=== PATIENT | male | born 2000 | race Caucasian/White ===

== ENCOUNTER → 2020-10-22 13:01 | Outpatient (BNVA) | payer MEDICAID, SELFPAY | PROVIDERS: Visit Provider Nurse Practitioner Family | DX: Z20.822 Contact with and (suspected) exposure to COVID-19 (principal) | CPT/HCPCS: 87635 ==

== ENCOUNTER 2021-04-01 11:35 | Inpatient (IN) | payer SELFPAY ==
--- NOTE | 2021-04-01 12:26 | W.ED.PSYCHS ---
Documented by User: SELIN Parada 04/01/21 12:28 HPI - Psych General: Chief Complaint: Psychiatric Symptoms Stated Complaint: 96 HR HOLD Time Seen by Provider: 04/01/21 12:27 Source: patient and police Mode of arrival: other (police) Limitations: no limitations History of Present Illness: HPI Narrative: Patient is a 20-year-old male who presents to ED today in police custody on a 96-hour hold after he made suicidal statements via text yesterday evening. According to hold paperwork and printed text messages the patient made statements about needing a gun to end it all or if he did not have access to a gun he would wrecked his car. Patient tells me he is not currently suicidal. Denies drug or alcohol use yesterday evening. Course Vital Signs: Vital signs: Vital Signs Temperature 97.9 F 04/01/21 13:10 Pulse Rate 81 04/01/21 13:10 Respiratory Rate 14 04/01/21 13:10 Blood Pressure 150/98 04/01/21 13:10 Pulse Oximetry 97 04/01/21 13:10 MDM - Psych MDM Narrative: Medical decision making narrative: Patient is yet to be triaged at the moment. I spoke to patient and police liaison while they were in the waiting room. He currently is handcuffed in police custody. Once he is triaged we will get patient to an appropriate room with a sitter for psychiatric work-up and admission to N[facility]. Lab Data: Labs: Lab Results 04/01/21 13:14 WBC 8.7 10^3/uL 10^3/ uL (4.0-10.0) RBC 6.01 10^6/uL H 10 ^6/uL (4.1-5.3) Hgb 16.9 g/dL H g/dL (11.7-16.6) Hct 52.5 % H % (42.0-52.0) MCV 87.4 fl fl (80-94) MCH 28.1 pg pg (28.0-34.0) MCHC 32.2 g/dL g/dL (30.0-36.0) RDW 12.1 % % (12.1-15.1) Plt Count 205 10^3/cmm 10^3 /cmm (130-400) MPV 11.5 fL H fL (7.4-10.4) Neut % (Auto) 66.3 % % Lymph % (Auto) 22.3 % % Beauregard % (Auto) 8.3 % % Eos % (Auto) 2.2 % % Baso % (Auto) 0.6 % % Neut # (Auto) 5.75 10^3/uL 10^3 /uL (1.8-7.7) Lymph # (Auto) 1.9 10^3/uL 10^3/ uL (0.8-4.8) Beauregard # (Auto) 0.7 10^3/uL 10^3/ uL (0.2-0.9) Eos # (Auto) 0.2 10^3/uL 10^3/ uL (0.0-0.8) Baso # (Auto) 0.1 10^3/uL 10^3/ uL (0.0-0.1) Nucleated RBC % (a uto) 0 % % Nucleated RBCs # 0.0 /100WBC /100W BC Discharge Plan Discharge Prescriptions: No Action No Known Home Medications RF: 0 Coding Level of Care Code ED Timber Girdler for Chg Fwd Documented by User: Beverley Moreno MD 04/01/21 13:37 HPI - Psych General: Chief Complaint: Psychiatric Symptoms Stated Complaint: 96 HR HOLD Time Seen by Provider: 04/01/21 12:27 Course Vital Signs: Vital signs: Vital Signs Temperature 97.9 F 04/01/21 13:10 Pulse Rate 81 04/01/21 13:10 Respiratory Rate 14 04/01/21 13:10 Blood Pressure 150/98 04/01/21 13:10 Pulse Oximetry 97 04/01/21 13:10 MDM - Psych Lab Data: Labs: Lab Results 04/01/21 13:14 WBC 8.7 10^3/uL 10^3/ uL (4.0-10.0) RBC 6.01 10^6/uL H 10 ^6/uL (4.1-5.3) Hgb 16.9 g/dL H g/dL (11.7-16.6) Hct 52.5 % H % (42.0-52.0) MCV 87.4 fl fl (80-94) MCH 28.1 pg pg (28.0-34.0) MCHC 32.2 g/dL g/dL (30.0-36.0) RDW 12.1 % % (12.1-15.1) Plt Count 205 10^3/cmm 10^3 /cmm (130-400) MPV 11.5 fL H fL (7.4-10.4) Neut % (Auto) 66.3 % % Lymph % (Auto) 22.3 % % Beauregard % (Auto) 8.3 % % Eos % (Auto) 2.2 % % Baso % (Auto) 0.6 % % Neut # (Auto) 5.75 10^3/uL 10^3 /uL (1.8-7.7) Lymph # (Auto) 1.9 10^3/uL 10^3/ uL (0.8-4.8) Beauregard # (Auto) 0.7 10^3/uL 10^3/ uL (0.2-0.9) Eos # (Auto) 0.2 10^3/uL 10^3/ uL (0.0-0.8) Baso # (Auto) 0.1 10^3/uL 10^3/ uL (0.0-0.1) Nucleated RBC % (a uto) 0 % % Nucleated RBCs # 0.0 /100WBC /100W BC Discharge Plan Discharge Prescriptions: No Action No Known Home Medications RF: 0 Coding Level of Care Code ED Timber Girdler for Papitog Abril
[2021-04-01 13:10] VITALS: BP 150/98; PULSE 81; RESP 14; TEMP 36.6; O2SAT 97; BMI 26.6
[2021-04-01 13:20] LABS: Basophils # 0.1 10^3/uL (0.0-0.1); Basophils % 0.6 %; Eosinophils # 0.2 10^3/uL (0.0-0.8); Eosinophils % 2.2 %; Hematocrit 52.5 % (42.0-52.0); Hemoglobin 16.9 g/dL (11.7-16.6); Lymphocytes # 1.9 10^3/uL (0.8-4.8); Lymphocytes % 22.3 %; Mean Corpuscular HGB Conc 32.2 g/dL (30.0-36.0); Mean Corpuscular Hemoglobin 28.1 pg (28.0-34.0); Mean Corpuscular Volume 87.4 fl (80-94); Mean Platelet Volume 11.5 fL (7.4-10.4); Monocytes # 0.7 10^3/uL (0.2-0.9); Monocytes % 8.3 %; Neutrophils # 5.75 10^3/uL (1.8-7.7); Neutrophils % 66.3 %; Nucleated Red Blood Cells % 0 %; Platelet Count 205 10^3/cmm (130-400); Red Blood Count 6.01 10^6/uL (4.1-5.3); Red Cell Distribution Width 12.1 % (12.1-15.1); White Blood Count 8.7 10^3/uL (4.0-10.0)
[2021-04-01 13:38] LABS: Anion Gap 16.4 (5-19); Blood Urea Nitrogen 14 mg/dL (6-20); Carbon Dioxide 25 mmol/L (22-29); Chloride 100 mmol/L (98-107); Glucose 108 mg/dL (65-115); Osmolality Calculated 285 mOsm/kg (285-295); Potassium 4.4 mmol/L (3.5-5.1); Sodium 137 mmol/L (136-145)
[2021-04-01 13:40] LABS: Acetaminophen < 5.0 ug/mL (10-30); Alcohol Level < 10 mg/dL (0-10); Salicylate < 0.3 mg/dL (3-10)
[2021-04-01 16:03] VITALS: BP 150/98; PULSE 81; RESP 14; TEMP 36.6; O2SAT 97
[2021-04-01 17:19] LABS: Amphetamines Screen Urine Negative (Negative); Barbiturates Screen Urine Negative (Negative); Benzodiazepines Screen Urine Negative (Negative); Cocaine Screen Urine Negative (Negative); Opiate Screen Urine Negative (Negative); PCP Screen Urine Negative (Negative); THC Screen Urine Negative (Negative)
--- NOTE | 2021-04-01 18:07 | PC.NURSE ---
Admission Patient is a 20-year-old male who presents to ED today in police custody on a 96-hour hold after he made suicidal statements via text yesterday evening. According to hold paperwork and printed text messages the patient made statements about needing a gun to end it all or if he did not have access to a gun he would wrecked his car. Patient tells me he is not currently suicidal. Denies drug or alcohol use yesterday evening. Upon arrival to unit, patient calm and cooperative, A&OX4. Patient denies current SI/HI or AVH. Agrees to SI yesterday, when asked about cause only states stress, does not elaborate. Denies prior dx or treatment for psych or medical. UDS negative.
[2021-04-01 23:44] VITALS: BP 129/79; PULSE 86; RESP 15; TEMP 36.6; O2SAT 95
[2021-04-02 05:54] VITALS: BP 128/76; PULSE 84; RESP 16; TEMP 37.1; O2SAT 99
--- NOTE | 2021-04-02 06:51 | W.PM.NPUH&PS ---
Providers/Chief Complaint Admitting Physician: Eliel Moyer MD Chief Complaint: 96 HR HOLD HPI NPU History of Present Illness Danny Tirado is a 20 year old male who presented yesterday to the emergency department with the following report: HPI - Psych General: Chief Complaint: Psychiatric Symptoms Stated Complaint: 96 HR HOLD Time Seen by Provider: 04/01/21 12:27 Source: patient and police Mode of arrival: other (police) Limitations: no limitations History of Present Illness: HPI Narrative: Patient is a 20-year-old male who presents to ED today in police custody on a 96-hour hold after he made suicidal statements via text yesterday evening. According to hold paperwork and printed text messages the patient made statements about needing a gun to end it all or if he did not have access to a gun he would wrecked his car. Patient tells me he is not currently suicidal. Denies drug or alcohol use yesterday evening. There is an affidavit on the chart. He made text message threats to kill himself yesterday. He was also found walking on the road in shorts and a T-shirt and was agitated and upset with the police pilot who tried to help him. He was admitted to the neuropsychiatry unit for definitive treatment of his depression and suicidal ideation. He says that he was stressed out on Thursday. He was drinking with his cousin and his girlfriend was there. They left for 2 hours and she got angry about that. He has an ex-girlfriend that he had been trying to get with. They had 2 miscarriages. Now she is for 15 weeks and says that it is his child. He is not sure. If it is his child then will be happy about it. He will probably get back with her. His current girlfriend who he had the argument with has had previously that if he has anything to do with that child she will leave him. He had suicidal ideation on Thursday. He says that happens occasionally when he gets stressed out. The last time was earlier this year. He says this is the second time this year that it has happened. He would not estimate the number of times it has happened previously. Family members were concerned and look for him and could not find him. They called the police who also look for him. He was finally found walking down the road not going anywhere in particular dressed in shorts and a short sleeve shirt. He says that he always stresses that way. He says that he always generates his own heat. Does skinny dipping and ice water in the wintertime. He initially said that he was not depressed or anxious. After some time he asked what depression was. I explained his symptoms and he said that he does meet those criteria. He said that he has had depression for a long time. He can only sleep for about 3 hours a day. Once he went 48 hours without sleeping but then slept for 24 hours. In general he sleeps 3 hours a day and does not catch up on weekends or days off. He always has low motivation and low energy and low self-esteem. He feels more guilty that he should. He says that he has tried marijuana and alcohol but they do not help. He says that he is generally on social person. There are only a very few people that he will talk to. His parents are not on that list. He says they were relatively good to him when he was growing up but not perfect. He would not talk more about that. 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 He is doing the generic work that does not require much experience or skill at this point. He is gradually learning how to work on the trucks himself. That he drinks occasionally but no one has ever complained that he drinks too much. He does not think that it caused a problem. It was a factor in his argument with his girlfriend on Thursday night. He was offered medication but declined. He was offered something to help him sleep but also declined. He says that he has used melatonin in the past but it does not do much. Meds NPU Home Medications Medication Instructions Recorded Confirmed Last Taken Type No Known Home Medications 10/22/20 04/01/21 Unknown History Allergies Allergy/AdvReac Type Severity Reaction Status Date / Time No Known Allergies Allergy Verified 04/01/21 14:15 Mental Status Exam MSE Comments: This is a 20-year-old mildly overweight male of about the stated age in no acute distress. He is dressed in hospital scrubs and is well groomed with long hair and a goatee. psychomotor activity normal. Speech is at a regular rate and rhythm, normal volume, good articulation, not pressured. Alert, oriented X3 Attention and concentration appears to be normal. Memory is intact Mood is depressed. Affect is dysphoric. Thought process is logical and goal-directed. Thought content: Denies auditory and visual hallucinations. No delusions or paranoia are noted. No current suicidal ideation, and no homicidal ideation. Fund of knowledge is appears to be normal. Insight and judgment appear to be appears to be good. Impulse control is appears to be fair. Vitals/I&O/Wt Last Vital Signs Temp 98.7 F 04/02/21 05:54 Pulse 84 04/02/21 05:54 Resp 16 04/02/21 05:54 BP 128/76 04/02/21 05:54 Pulse Ox 99 04/02/21 05:54 Weight last 48 hrs Weight 81.647 kg Data NPU : 04/01/21 13:14 04/01/21 13:14 A&P Assessment and plan (1) Depression: Status: Acute Qualifiers: Depression Type: major depressive disorder Major depression recurrence: recurrent Active/Remission status: currently active Major depression episode severity: severe Psychotic features: without psychotic features Qualified Code(s): F33.2 - Major depressive disorder, recurrent severe without psychotic features (2) Suicidal ideation: Status: Acute Additional A&P Information This is a 20-year-old male who reports long-term depression and had a fight with his girlfriend resulting in suicidal ideation and threats. Plan: 1. offered medication declined. 2. Continue every 15 minute checks for safety. 3. Encourage individual, group and milieu therapies. 4. Encourage sober living treatment after discharge at the highest level of care to which he is willing to commit. 5. We will monitor for safety for himself in the community prior to discharge. Involuntary Hold Information 96 Hour Hold: 96 Hour Involuntary Admission: Yes 96 Hour Hold Ending Date: 04/08/21 96 Hour Hold Ending Time: 11:35 Attestations NPU Medical Necessity Statement*: Inpatient hospitalization is medically necessary and the clinically appropriate intervention at this time. We will initiate medications and make changes as indicated. He will be in the hospital for over 2 midnights. Likely length of stay 3-4 days Coding Level of Care Code Acute Education Courses Sales Representative for Ariana Samuels Diagnoses Depression F33.2 Depression Type: major depressive disorder Major depression recurrence: recurrent Active/Remission status: currently active Major depression episode severity: severe Psychotic features: without psychotic features Suicidal ideation R44.047
--- NOTE | 2021-04-02 11:05 | NPU.GN ---
[facility] Group Topic:Tello Word Search General Mood of Group: Romeo did not attend group today he slept today.
[2021-04-02 14:00] VITALS: BP 135/72; PULSE 70; RESP 17; TEMP 37; O2SAT 99
[2021-04-02 20:47] VITALS: BP 126/79; PULSE 88; RESP 18; TEMP 36.8; O2SAT 97
--- NOTE | 2021-04-02 22:58 | PC.NURSE ---
Patient has slept through equipment installation professional assessment for the last 3 shifts. He does not interact with staff.
[2021-04-03 06:00] VITALS: BP 106/66; PULSE 82; RESP 16; TEMP 36.6; O2SAT 99
--- NOTE | 2021-04-03 10:31 | NPU.GN ---
[facility] Group Topic:Group Topic:Crisis Plan, Triggers, Coping Mechanisms. General Mood of Group:Danny did not attend group this morning. He was awake but just sitting on his bed.
--- NOTE | 2021-04-03 11:42 | W.PM.NPUPNS ---
Subjective NPU Subjective: Interval history: He says that he has been doing well. He said that he just needed to walk around the road and he would be fine. Unfortunately he did not talk to the police and was argumentative with them. He said he does not like to talk to the police. He thinks that he is mostly down because his ex-girlfriend was with twins but lost them due to a miscarriage and they would have been 1.5 years old at this time. His father came to visit and they had a good talk. He still says his father is not someone to talk to but he talked a lot about conversations that he has had. He feels like his father is a person that he can talk to and learn about how to deal with his issues. He said that he is exactly like his father. He was really wanting to go home today but reluctantly agreed to wait 1 more day to make sure that he is okay and does not have any more suicidal thoughts. Mental Status Exam MSE Comments: This is a 20-year-old mildly overweight male of about the stated age in no acute distress. He is dressed in hospital scrubs and is well groomed with long hair and a goatee. psychomotor activity normal. Speech is at a regular rate and rhythm, normal volume, good articulation, not pressured. Alert, oriented X3 Attention and concentration appears to be normal. Memory is intact Mood is mildly depressed. Affect is mildly dysphoric. Thought process is logical and goal-directed. Thought content: Denies auditory and visual hallucinations. No delusions or paranoia are noted. No current suicidal ideation, and no homicidal ideation. Fund of knowledge is appears to be normal. Insight and judgment appear to be appears to be good. Impulse control is appears to be fair. Cognition: Patient Appearance: Appropriate Level of Consciousness: Awake and Alert Patient Cognition Impaired: No Ability to Follow Directions: Good Patient Orientation (long list): Person, Place and Time Comprehension Ability: Understands Concepts Hallucination Type: None Delusion Description: Not Present Thought Process: Appropriate Affect: Affect Description: Appropriate Behavior: Patient Behavior: Appropriate Speech Pattern: Appropriate Vitals/I&O/Wt Last Vital Signs Temp 97.9 F 04/03/21 06:00 Pulse 82 04/03/21 06:00 Resp 16 04/03/21 06:00 BP 106/66 04/03/21 06:00 Pulse Ox 99 04/03/21 06:00 Weight last 48 hrs Weight 81.647 kg Data N[facility] : 04/01/21 13:14 04/01/21 13:14 A&P Assessment and plan (1) Depression: Status: Acute Qualifiers: Depression Type: major depressive disorder Major depression recurrence: recurrent Active/Remission status: currently active Major depression episode severity: severe Psychotic features: without psychotic features Qualified Code(s): F33.2 - Major depressive disorder, recurrent severe without psychotic features (2) Suicidal ideation: Status: Acute Additional A&P Information This is a 20-year-old male who reports long-term depression and had a fight with his girlfriend resulting in suicidal ideation and threats. Plan: 1. offered medication but he declined. 2. Continue every 15 minute checks for safety. 3. Encourage individual, group and milieu therapies. 4. Encourage sober living treatment after discharge at the highest level of care to which he is willing to commit. 5. We will monitor for safety for himself in the community prior to discharge. Involuntary Hold Information 96 Hour Hold: 96 Hour Involuntary Admission: Yes 96 Hour Hold Ending Date: 04/08/21 96 Hour Hold Ending Time: 11:35 Attestations NPU Medical Necessity Statement*: Inpatient hospitalization is medically necessary and the clinically appropriate intervention at this time. We will initiate medications and make changes as indicated. Coding Level of Care Code Acute Strip Tank Tender for Ariana Samuels Diagnoses Depression F33.2 Depression Type: major depressive disorder Major depression recurrence: recurrent Active/Remission status: currently active Major depression episode severity: severe Psychotic features: without psychotic features Suicidal ideation R45.851
[2021-04-03 14:00] VITALS: BP 128/86; PULSE 73; RESP 18; TEMP 36.7; O2SAT 99
[2021-04-03 22:00] VITALS: BP 128/86; PULSE 73; RESP 18; TEMP 36.7; O2SAT 99
[2021-04-04 06:00] VITALS: BP 105/70; PULSE 90; RESP 17; TEMP 36.8; O2SAT 99
--- NOTE | 2021-04-04 07:50 | P.NPUDS_ITS ---
Diagnoses at Discharge Discharge Diagnosis (1) Depression: Status: Acute Qualifiers: Depression Type: major depressive disorder Major depression recurrence: recurrent Active/Remission status: currently active Major depression episode severity: severe Psychotic features: without psychotic features Qualified Code(s): F33.2 - Major depressive disorder, recurrent severe without psychotic features (2) Suicidal ideation: Status: Acute Reason for Visit Reason for Visit: 96 HR HOLD Brief History: History of Present Illness Danny Tirado is a 20 year old male who presented yesterday to the emergency department with the following report: HPI - Psych General: Chief Complaint: Psychiatric Symptoms Stated Complaint: 96 HR HOLD Time Seen by Provider: 04/01/21 12:27 Source: patient and police Mode of arrival: other (police) Limitations: no limitations History of Present Illness: HPI Narrative: Patient is a 20-year-old male who presents to ED today in police custody on a 96-hour hold after he made suicidal statements via text yesterday evening. According to hold paperwork and printed text messages the patient made statements about needing a gun to end it all or if he did not have access to a gun he would wrecked his car. Patient tells me he is not currently suicidal. Denies drug or alcohol use yesterday evening. There is an affidavit on the chart. He made text message threats to kill himself yesterday. He was also found walking on the road in shorts and a T- shirt and was agitated and upset with the police crime scene technician who tried to help him. He was admitted to the neuropsychiatry unit for definitive treatment of his depression and suicidal ideation. He says that he was stressed out on Thursday. He was drinking with his cousin and his girlfriend was there. They left for 2 hours and she got angry about that. He has an ex-girlfriend that he had been trying to get with. They had 2 miscarriages. Now she is for 15 weeks and says that it is his child. He is not sure. If it is his child then will be happy about it. He will probably get back with her. His current girlfriend who he had the argument with has had previously that if he has anything to do with that child she will leave him. He had suicidal ideation on Thursday. He says that happens occasionally when he gets stressed out. The last time was earlier this year. He says this is the second time this year that it has happened. He would not estimate the number of times it has happened previously. Family members were concerned and look for him and could not find him. They called the police who also look for him. He was finally found walking down the road not going anywhere in particular dressed in shorts and a short sleeve shirt. He says that he always stresses that way. He says that he always generates his own heat. Does skinny dipping and ice water in the wintertime. He initially said that he was not depressed or anxious. After some time he asked what depression was. I explained his symptoms and he said that he does meet those criteria. He said that he has had depression for a long time. He can only sleep for about 3 hours a day. Once he went 48 hours without sleeping but then slept for 24 hours. In general he sleeps 3 hours a day and does not catch up on weekends or days off. He always has low motivation and low energy and low self-esteem. He feels more guilty that he should. He says that he has tried marijuana and alcohol but they do not help. He says that he is generally on social person. There are only a very few people that he will talk to. His parents are not on that list. He says they were relatively good to him when he was growing up but not perfect. He would not talk more about that. 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 He is doing the generic work that does not require much experience or skill at this point. He is gradually learning how to work on the trucks himself. That he drinks occasionally but no one has ever complained that he drinks too much. He does not think that it caused a problem. It was a factor in his argument with his girlfriend on Thursday night. He was offered medication but declined. He was offered something to help him sleep but also declined. He says that he has used melatonin in the past but it does not do much. Hospital Course Hospital Course He slowly acclimated to the individual, group and milieu therapies provided. He does not feel that he is depressed and did not want to take medication. He showed steady improvement during his stay. He was able to contract for safety outside hospital prior to discharge. During the hospitalization, patient had routine laboratory studies which were within normal limits except for few outliers. Additionally there was a general medical evaluation which was also within normal limits and revealed no new acute processes. Discharge Summary: At the time of discharge, lethality was denied. Mood and anxiety were well managed. Patient endorsed a plan to follow-up with the aftercare recommendations of the treatment team. Patient was evaluated and deemed to be absent credible lethality, and had achieved the maximum benefit from an inpat ient hospitalization, so was discharged. Involuntary Hold Information 96 Hour Hold: 96 Hour Involuntary Admission: Yes 96 Hour Hold Ending Date: 04/08/21 96 Hour Hold Ending Time: 11:35 Mental Status Exam MSE Comments: This is a 20-year-old mildly overweight male of about the stated age in no acute distress. He is dressed in hospital scrubs and is well groomed with long hair and a goatee. psychomotor activity normal. Speech is at a regular rate and rhythm, normal volume, good articulation, not pressured. Alert, oriented X3 Attention and concentration appears to be normal. Memory is intact Mood is good. Affect is mildly euthymic. Thought process is logical and goal-directed. Thought content: Denies auditory and visual hallucinations. No delusions or paranoia are noted. No current suicidal ideation, and no homicidal ideation. Fund of knowledge is appears to be normal. Insight and judgment appear to be appears to be good. Impulse control is appears to be fair. Cognition: Patient Appearance: Appropriate Level of Consciousness: Awake and Alert Patient Cognition Impaired: No Ability to Follow Directions: Good Patient Orientation (long list): Person, Place and Time Comprehension Ability: Understands Concepts Hallucination Type: None Delusion Description: Not Present Thought Process: Appropriate Affect: Affect Description: Appropriate Behavior: Patient Behavior: Appropriate and Withdrawn Speech Pattern: Appropriate Discharge Data Vitals: Last Vital Signs Temp 98.2 F 04/04/21 06:00 Pulse 90 04/04/21 06:00 Resp 17 04/04/21 06:00 BP 105/70 04/04/21 06:00 Pulse Ox 99 04/04/21 06:00 Discharge Plan Discharge Patient Disposition: Home Condition: Stable Prescriptions: No Action No Known Home Medications RF: 0 Discharge Orders: Discharge Order (Routine); Ordered 04/04/21 Ordered By: Eliel Moyer Discharge Diet: Regular Discharge Activity: Resume usual activity Patient Instructions: Opioid Safety Discharge Attestations NPU Time Spent in Discharge Care*: less than 30 min Specific Discharge Activities: Specific discharge activities: educating patient, discussing with caseworker protective services/social workers/dc planners, documenting/other paperwork and evaluating patient/reviewing data Coding Level of Care Code Acute g FW DC note Diagnoses Depression F33.2 Depression Type: major depressive disorder Major depression recurrence: recurrent Active/Remission status: currently active Major depression episode severity: severe Psychotic features: without psychotic features Suicidal ideation R45.511
[2021-04-04 10:02] VITALS: BP 105/70; PULSE 90; RESP 17; TEMP 36.8; O2SAT 99
[2021-04-04 10:04] VITALS: BP 105/70; PULSE 90; RESP 17; TEMP 36.8; O2SAT 99
== END 2021-04-04 10:40 | disposition home or self-care (01) | DRG 885 ==
LOC: ER 13:13 → NP 16:10
PROVIDERS: Admitting Provider Psychiatry & Neurology Psychiatry; Emergency Provider Emergency Medicine; Visit Provider Psychiatry & Neurology Psychiatry
DX: F33.2 Major depressive disorder, recurrent severe without psychotic features (principal); R45.851 Suicidal ideations
CPT/HCPCS: 36415; 80048; 80306; 80307; 85025; 97165; 99285